=== PATIENT | female | born 1955 | race American Indian/Alaskan Native ===

== ENCOUNTER 2017-01-22 17:19 | Emergency (ER) | payer SELFPAY ==
[2017-01-22 18:59] LABS: Basophils # (Auto) 0.1 K/mm3 (0.0-0.1); Basophils % (Auto) 0.8 % (0.0-1.8); Eosinophils % (Auto) 0.3 % (0.0-4.3); Hematocrit 37.4 % (30.3-42.9); Hemoglobin 12.5 gm/dl (10.1-14.3); Lymphocytes # (Auto) 2.8 K/mm3 (1.2-5.4); Lymphocytes % (Auto) 42.4 % (13.4-35.0); Mean Corpuscular HGB Conc 33 % (30-34); Mean Corpuscular Hemoglobin 32 pg (28-32); Mean Corpuscular Volume 94 fl (79-97); Monocytes # (Auto) 0.9 K/mm3 (0.0-0.8); Monocytes % (Auto) 13.1 % (0.0-7.3); Platelet Count 229 K/mm3 (140-440); Red Blood Count 3.97 M/mm3 (3.65-5.03); Red Cell Distribution Width 14.6 % (13.2-15.2)
[2017-01-22 19:02] LABS: Bilirubin,Urine NEG (Negative); Blood,Urine NEG (Negative); Color,Urine Straw (Yellow); Nitrite,Urine NEG (Negative); Protein,Urine <15 mg/dL mg/dL (Negative); Urobilinogen,Urine < 2.0 mg/dL (<2.0)
[2017-01-22 19:12] LABS: Amphetamine Screen,Urine PRESUMPTIVE NEGATIVE; Benzodiazepines Screen,Urine PRESUMPTIVE NEGATIVE; Cannabinoid Screen,Urine PRESUMPTIVE NEGATIVE; Cocaine Screen,Urine PRESUMPTIVE NEGATIVE; Methadone Screen,Urine PRESUMPTIVE NEGATIVE; Opiate Screen,Urine PRESUMPTIVE NEGATIVE
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
[2017-01-22 19:19] LABS: Alanine Aminotransferase 20 units/L (7-56); Albumin 3.9 g/dL (3.9-5); BUN/Creatinine Ratio 16; Blood Urea Nitrogen 11 mg/dL (7-17); Calcium 9.1 mg/dL (8.4-10.2); Hemolysis Index 21
--- NOTE | 2017-01-23 12:48 | Consultation ---
History of Present Illness - Reason for Consult Consult date: 01/23/17 Reason for consult: Mental Health Evaluation Requesting physician: ZACHARY NI - Chief Complaint Chief complaint: "What" - History of Present Psychiatric Illness This is a 61 year-old female presents to the emergency department for a mental health evaluation. Today patient is calm, but disorganized during the assessment. Patient was not able to answer questions logically when asked. Patient is a poor historian at this time. Per the ER note , the patient has a community mental health social worker. Past psychiatric history - Past Medical History Past Medical History: other (Unable to obtain) Past Surgical History: Other (Unable to obtain) - past Psychiatric treatment and history psychiatric treatment history: Unable to obtain a psy hx or fam psy hx. - Social History Social history: other (homeless) Mental Status Exam - Vital signs Last Vital Signs Temp 98.7 F 01/23/17 10:05 Pulse 103 H 01/23/17 10:05 Resp 20 01/23/17 10:07 BP 128/79 01/23/17 10:05 Pulse Ox 100 01/23/17 10:07 - Exam Narrative exam: MSE: Appearance: calm Behavior: regular eye contact Speech: regular rate and tone Mood: 'I don't know" Affect: blunted Thought Process: tangential Thought Content: no gestures SI/HI's and AVH's, disorganized Motor Activity: ambulatory, mild tremors Cognition: A/O x1 Insight: limited Judgment: limited Results Result Diagrams: 01/22/17 18:39 01/22/17 18:39 Abnormal lab results 01/22/17 01/22/17 Range/Units 18:39 18:39 Lymph % (Auto) 42.4 H (13.4-35.0) % Wake % (Auto) 13.1 H (0.0-7.3) % Wake # 0.9 H (0.0-0.8) K/mm3 Alkaline Phosphatase 141 H (35-129) units/L Total Protein 8.6 H (6.3-8.2) g/dL All other labs normal. Assessment and Plan Assessment and plan: Impression: Today patient is calm, but disorganized during the assessment. Patient is a poor historian. Recommendation/Plan: Continue 1013. Patient does not have the ability to care for self. Gather collateral to determine proper dispo and treatment.
[2017-01-24] MEDS ORDERED: HALDOL PO ONE (11:20)
--- NOTE | 2017-01-24 22:41 | Progress Note ---
Subjective - Reason for Consult Reason for consult: disorganized Mental Status Exam - Vital signs Last Vital Signs Temp 98.2 F 01/24/17 09:34 Pulse 96 H 01/24/17 09:34 Resp 18 01/24/17 09:35 BP 144/68 01/24/17 09:34 Pulse Ox 99 01/24/17 09:34 Assessment and Plan Orientation to Time: day, month, but not year, date or time Orientation to Place: city, state, but not location floor, hospital name Registration: able to repeat named prompts Attention/Calculation: DLWR (when asked WORLD backwards), poor calculation, unable to do serial 7's Recall: poor Langauge: naming intact Repetition: intact Complex commands: limited MENTAL STATUS EXAM: General Appearance: Dressed in hospital gown, no acute distress Sensorium/Consciousness: Mostly alert Eye Contact: limited Attitude / Behavior: cooperative, but guarded Psychomotor & Musculoskeletal Activity: impulsive, agitated Mood: fine Affect: labile and incongruent Speech / Language: Not slurred, reduced spontaneity but fluent when speaking Thought Processes: Perseverative Thought Content: denies SI/HI Perception: no AVH Orientation: limited, as described ablve Judgment What would you do if you smelled smoke in a crowded movie theater?: limited Insight: limited Intelligence Vocabulary, general fund of knowledge, educational level: fair Capacity of ADLs: Independent ADMITTING DIAGNOSES/INITIAL IMPRESSION: Dementia r/o Delirium INITIAL PLAN OF CARE AND TREATMENT GOALS: 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 The patient has not been able to demonstrate ability to care for self and should be maintained in a structured environment. Given their lack of capacity to make a decision, a surrogate decision maker should be named to make medical, placement , and discharge decisions. Should the patient try to leave, they should not be allowed unless the surrogate decision maker has agreed. The risk, benefits, and alternative options to holding the patient for placement should be discussed with the surrogate, and he/she must also demonstrate understanding of these principles. If a surrogate decision maker has not been identified, the hospital should act in the patients best interest until one can be identified or a guardian established. At this time, we feel it is in the patients best interest to remain at [facility] in a structured environment with adequate support for daily living until placement in a shelter or other suitable placement has been arranged. The patient does not meet criteria for a 1013 or any other psychiatric legal hold.
--- NOTE | 2017-01-25 11:44 | Progress Note ---
Subjective - Reason for Consult Consult date: 01/25/17 Reason for consult: Psychiatry Follow-up - Chief Complaint Chief complaint: "Tashia" This is a 61 year-old female presents to the emergency department for a mental health evaluation. Today patient is calm during the assessment. Patient is adamant about going home. Patient was able to recall 1/3 numbers (4,8,11) within 5 mins. Patient was not able to state her and the current [place] President. Per the staff, patient ate 100% of her meals and no behavioral disturbances overnight. She denies SI/HI's. Mental Status Exam - Vital signs Last Vital Signs Temp 98.8 F 01/24/17 23:00 Pulse 69 01/24/17 23:00 Resp 18 01/24/17 23:00 BP 122/60 01/24/17 23:00 Pulse Ox 97 01/24/17 23:00 - Exam Narrative exam: MSE: Appearance: calm, cooperative Behavior: regular eye contact Speech: regular rate and tone Mood: "okay" Affect: labile Thought Process: perseverative Thought Content: denies SI/HI's and AVH's Motor Activity: ambulatory, mild tremors Cognition: A/O x2 Insight: limited Judgment: limited Assessment and Plan Impression: Dementia. Today patient calm during the assessment. Patient is a poor historian. DDx: R/O Delirium Recommendation/Plan: Rescind 1013. Gather collateral information to help determine treatment. De Icer Finisher involve, patient will need placement. Delirium Precautions below: Delirium precautions below: 1. Frequently reorient patient and involve him/her in their care (simple explanations of procedures, tests, medications). 2. Lights on and shades open during daytime hours. 3. Try to avoid unnecessary interruptions to sleep during nighttime hours. 4. Obtain glasses, hearing aids from home if patient uses these at baseline. 5. Avoid medications that may exacerbate delirium (especially narcotics, barbiturates, ambien, lunesta, benzos, and medications with excessive anticholinergic properties). 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 The patient has not been able to demonstrate ability to care for self and should be maintained in a structured environment. Given their lack of capacity to make a decision, a surrogate decision maker should be named to make medical, placement , and discharge decisions. Should the patient try to leave, they should not be allowed unless the surrogate decision maker has agreed. The risk, benefits, and alternative options to holding the patient for placement should be discussed with the surrogate, and he/she must also demonstrate understanding of these principles. If a surrogate decision maker has not been identified, the hospital should act in the patients best interest until one can be identified or a guardian established. At this time, we feel it is in the patients best interest to remain at [facility] in a structured environment with adequate support for daily living until placement in a jail or other suitable placement has been arranged. The patient does not meet criteria for a 1013 or any other psychiatric legal hold.
--- NOTE | 2017-01-26 22:02 | Progress Note ---
Subjective - Reason for Consult Reason for consult: disorganized Mental Status Exam - Vital signs Last Vital Signs Temp 98.5 F 01/26/17 10:00 Pulse 100 H 01/26/17 10:00 Resp 18 01/26/17 18:03 BP 106/57 01/26/17 10:00 Pulse Ox 97 01/26/17 18:03 Assessment and Plan Continues to struggle with executive function: planning and coordination of activities. As such, patient needs placement in a level II fci. food services director should get involve in the process to help facilitate this process. MENTAL STATUS EXAM: General Appearance: Dressed in hospital gown, no acute distress Sensorium/Consciousness: Mostly alert Eye Contact: limited Attitude / Behavior: cooperative, but guarded Psychomotor & Musculoskeletal Activity: impulsive, agitated Mood: fine Affect: labile and incongruent Speech / Language: Not slurred, reduced spontaneity but fluent when speaking Thought Processes: Perseverative Thought Content: denies SI/HI Perception: no AVH Orientation: limited, as described ablve Judgment What would you do if you smelled smoke in a crowded movie theater?: limited Insight: limited Intelligence Vocabulary, general fund of knowledge, educational level: fair Capacity of ADLs: Independent ADMITTING DIAGNOSES/INITIAL IMPRESSION: Dementia INITIAL PLAN OF CARE AND TREATMENT GOALS: 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 The patient has not been able to demonstrate ability to care for self and should be maintained in a structured environment. Given their lack of capacity to make a decision, a surrogate decision maker should be named to make medical, placement , and discharge decisions. Should the patient try to leave, they should not be allowed unless the surrogate decision maker has agreed. The risk, benefits, and alternative options to holding the patient for placement should be discussed with the surrogate, and he/she must also demonstrate understanding of these principles. If a surrogate decision maker has not been identified, the hospital should act in the patients best interest until one can be identified or a guardian established. At this time, we feel it is in the patients best interest to remain at [facility] in a structured environment with adequate support for daily living until placement in a fci or other suitable placement has been arranged. The patient does not meet criteria for a 1013 or any other psychiatric legal hold.
--- NOTE | 2017-01-27 14:44 | Progress Note ---
Subjective - Reason for Consult Consult date: 01/27/17 Reason for consult: psychiatric follow up - Chief Complaint Chief complaint: "When can I go?" This is a 61 year-old female waiting for placement by foster care social worker. Today patient is calm during the assessment. Patient is adamant about going home. She reports a fair appetite but is having trouble going to sleep. She asks for benadryl. She requires assistance for ADLs. Mental Status Exam - Vital signs Last Vital Signs Temp 98.4 F 01/27/17 07:25 Pulse 68 01/27/17 07:25 Resp 20 01/27/17 07:25 BP 119/78 01/27/17 07:25 Pulse Ox 100 01/27/17 07:25 Assessment and Plan Continues to struggle with executive function: planning and coordination of activities. As such, patient needs placement in a level II residential. financial services rep should get involve in the process to help facilitate this process. 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 The patient has not been able to demonstrate ability to care for self and should be maintained in a structured environment. Given their lack of capacity to make a decision, a surrogate decision maker should be named to make medical, placement , and discharge decisions. Should the patient try to leave, they should not be allowed unless the surrogate decision maker has agreed. The risk, benefits, and alternative options to holding the patient for placement should be discussed with the surrogate, and he/she must also demonstrate understanding of these principles. If a surrogate decision maker has not been identified, the hospital should act in the patients best interest until one can be identified or a guardian established. At this time, we feel it is in the patients best interest to remain at [facility] in a structured environment with adequate support for daily living until placement in a residential or other suitable placement has been arranged. The patient does not meet criteria for a 1013 or any other psychiatric legal hold. Remeron 7.5mg po hs added for sleep.
[2017-01-27] MEDS: REMERON PO SCH (22:21)
--- NOTE | 2017-01-28 16:30 | Progress Note ---
Subjective - Reason for Consult Consult date: 01/28/17 Reason for consult: follow up - Chief Complaint Chief complaint: "Hey" This is a 61 year-old female waiting for placement by social director. Today patient is calm during the assessment. Patient is adamant about going home. She is intrusive with staff. She reports a fair appetite and fair sleep since taking remeron last night. She requires assistance for ADLs, specifically with meal prep. Mental Status Exam - Vital signs Last Vital Signs Temp 98.5 F 01/28/17 10:39 Pulse 75 01/28/17 10:39 Resp 20 01/28/17 10:39 BP 134/66 01/28/17 10:39 Pulse Ox 100 01/27/17 19:50 Assessment and Plan Continues to struggle with executive function: planning and coordination of activities. As such, patient needs placement in a level II chcf. donor services team leader should get involve in the process to help facilitate this process. MENTAL STATUS EXAM: General Appearance: Dressed in hospital gown, no acute distress. Sensorium: alert Eye Contact: limited Attitude / Behavior: cooperative and intrusive Psychomotor & Musculoskeletal Activity: generalized tremors Mood: fine Affect: labile and incongruent Speech / Language: regular rate and rhythm Thought Processes: Perseverative Thought Content: denies SI/HI Perception: no AVH Orientation: limited to person and place Judgment: limited Insight: limited Intelligence: fair Capacity of ADLs: independent with ambulation and toileting. 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 The patient has not been able to demonstrate ability to care for self and should be maintained in a structured environment. Given their lack of capacity to make a decision, a surrogate decision maker should be named to make medical, placement , and discharge decisions. Should the patient try to leave, they should not be allowed unless the surrogate decision maker has agreed. The risk, benefits, and alternative options to holding the patient for placement should be discussed with the surrogate, and he/she must also demonstrate understanding of these principles. If a surrogate decision maker has not been identified, the hospital should act in the patients best interest until one can be identified or a guardian established. At this time, we feel it is in the patients best interest to remain at [facility] in a structured environment with adequate support for daily living until placement in a chcf or other suitable placement has been arranged. The patient does not meet criteria for a 1013 or any other psychiatric legal hold. Continue Remeron 7.5mg po hs, which was added for sleep.
[2017-01-29] MEDS: REMERON PO SCH ×2 (01:40→22:06)
--- NOTE | 2017-01-29 14:50 | Progress Note ---
Subjective - Reason for Consult Consult date: 01/29/17 Reason for consult: Psychiatry Follow-up - Chief Complaint Chief complaint: "Tashia Blackburn is a 61 year-old female waiting for placement by child protective services social worker. Today patient is calm during the assessment. She was eating her breakfast on my arrival to her room. She denies any side effects of her medication. Per the staff, no behavioral disturbance overnight. She denies SI/HI 's and AVH's. Mental Status Exam - Vital signs Last Vital Signs Temp 97.8 F 01/29/17 09:10 Pulse 60 01/29/17 09:10 Resp 20 01/29/17 09:10 BP 122/66 01/29/17 09:10 Pulse Ox 100 01/29/17 09:10 - Exam Narrative exam: MSE: Appearance: calm, cooperative Behavior: regular eye contact Speech: regular rate and tone Mood: "fine" Affect: labile Thought Process: perseverative Thought Content: denies SI/HI's and AVH's Motor Activity: ambulatory, mild tremors Cognition: A/O x2 Insight: limited Judgment: limited Assessment and Plan Impression: Dementia. Today patient calm during the assessment. She denies any sleep disturbance. Patient is not drowsy/lethargic during interview. DDx: R/O Delirium Recommendation/Plan: Continue Remeron 7.5 mg PO HS for sleep consolidation. Per Referral Clerk, patient is pending placement. 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 The patient has not been able to demonstrate ability to care for self and should be maintained in a structured environment. Given their lack of capacity to make a decision, a surrogate decision maker should be named to make medical, placement , and discharge decisions. Should the patient try to leave, they should not be allowed unless the surrogate decision maker has agreed. The risk, benefits, and alternative options to holding the patient for placement should be discussed with the surrogate, and he/she must also demonstrate understanding of these principles. If a surrogate decision maker has not been identified, the hospital should act in the patients best interest until one can be identified or a guardian established. At this time, we feel it is in the patients best interest to remain at [facility] in a structured environment with adequate support for daily living until placement in a [facility] or other suitable placement has been arranged. The patient does not meet criteria for a 1013 or any other psychiatric legal hold.
--- NOTE | 2017-01-30 10:35 | Progress Note ---
Subjective - Reason for Consult Consult date: 01/30/17 Reason for consult: Psychiatry Follow-up - Chief Complaint Chief complaint: "Good morning" This is a 61 year-old female waiting for placement by social services coordinator. Today patient is calm during the assessment. She is adamant about wanting to be discharged. She denies any side effects of her medication. Per the staff, no behavioral disturbance overnight. She denies SI/HI's and AVH's. Mental Status Exam - Vital signs Last Vital Signs Temp 97.8 F 01/29/17 09:10 Pulse 60 01/29/17 09:10 Resp 20 01/29/17 09:10 BP 122/66 01/29/17 09:10 Pulse Ox 100 01/29/17 09:10 - Exam Narrative exam: MSE: Appearance: calm, cooperative Behavior: regular eye contact Speech: regular rate and tone Mood: "okay" Affect: labile Thought Process: perseverative Thought Content: denies SI/HI's and AVH's Motor Activity: ambulatory, mild tremors Cognition: A/O x2 Insight: limited Judgment: limited Assessment and Plan Impression: Dementia. Today patient calm during the assessment. She denies any sleep disturbance. Patient is not drowsy/lethargic during interview. DDx: R/O Delirium Recommendation/Plan: Continue Remeron 7.5 mg PO HS for sleep consolidation. Per Occupancy Specialist, patient is pending placement. 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 The patient has not been able to demonstrate ability to care for self and should be maintained in a structured environment. Given their lack of capacity to make a decision, a surrogate decision maker should be named to make medical, placement , and discharge decisions. Should the patient try to leave, they should not be allowed unless the surrogate decision maker has agreed. The risk, benefits, and alternative options to holding the patient for placement should be discussed with the surrogate, and he/she must also demonstrate understanding of these principles. If a surrogate decision maker has not been identified, the hospital should act in the patients best interest until one can be identified or a guardian established. At this time, we feel it is in the patients best interest to remain at [facility] in a structured environment with adequate support for daily living until placement in a longterm or other suitable placement has been arranged. The patient does not meet criteria for a 1013 or any other psychiatric legal hold.
[2017-01-30] MEDS: REMERON PO SCH (22:03)
[2017-01-31] MEDS: REMERON PO SCH (21:37)
--- NOTE | 2017-02-01 13:00 | Progress Note ---
Subjective - Reason for Consult Consult date: 02/01/17 Reason for consult: Psychiatry Follow-up - Chief Complaint Chief complaint: "Tashia" This is a 61 year-old female waiting for placement by social services analyst. Today patient is calm during the assessment. Patient was able to tell me her , but could not ID the past and current [place] Presidents. She was only able to recall 1/3 numbers (6,10,12) within 5 mins. The patient continue to be adamant about being discharged. She denies any side effects of her medication. Per the staff, no behavioral disturbance overnight. She denies SI/HI's and AVH' s. Mental Status Exam - Vital signs Last Vital Signs Temp 98.2 F 01/31/17 20:43 Pulse 75 01/31/17 20:43 Resp 16 02/01/17 11:39 BP 120/66 01/31/17 20:43 Pulse Ox 98 02/01/17 11:39 - Exam Narrative exam: MSE: Appearance: calm, cooperative Behavior: regular eye contact Speech: regular rate and tone Mood: "well" Affect: congruent to mood Thought Process: circumstantial Thought Content: denies SI/HI's and AVH's Motor Activity: ambulatory, mild tremors Cognition: A/O x2 Insight: limited Judgment: limited Assessment and Plan Impression: Dementia. Today patient calm during the assessment. She denies any sleep disturbance. Patient is not drowsy/lethargic during interview. DDx: R/O Delirium Recommendation/Plan: Continue Remeron 7.5 mg PO HS for sleep consolidation. Per Shopping Investigator, patient is pending placement. 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 The patient has not been able to demonstrate ability to care for self and should be maintained in a structured environment. Given their lack of capacity to make a decision, a surrogate decision maker should be named to make medical, placement , and discharge decisions. Should the patient try to leave, they should not be allowed unless the surrogate decision maker has agreed. The risk, benefits, and alternative options to holding the patient for placement should be discussed with the surrogate, and he/she must also demonstrate understanding of these principles. If a surrogate decision maker has not been identified, the hospital should act in the patients best interest until one can be identified or a guardian established. At this time, we feel it is in the patients best interest to remain at [facility] in a structured environment with adequate support for daily living until placement in a penitentiary or other suitable placement has been arranged. The patient does not meet criteria for a 1013 or any other psychiatric legal hold.
[2017-02-01] MEDS: REMERON PO SCH (22:23)
--- NOTE | 2017-02-02 13:45 | Progress Note ---
Subjective - Reason for Consult Consult date: 02/02/17 Reason for consult: Psychiatry Follow-up - Chief Complaint Chief complaint: "How are you" This is a 61 year-old female waiting for placement by social media intern. Today patient is calm during the assessment. No changes to patient status since yesterday. Per the staff, no behavioral disturbances overnight. She denies SI/HI's and AVH's. Mental Status Exam - Vital signs Last Vital Signs Temp 98.6 F 02/01/17 22:00 Pulse 70 02/01/17 22:00 Resp 18 02/01/17 22:00 BP 112/71 02/01/17 22:00 Pulse Ox 98 02/01/17 22:00 - Exam Narrative exam: MSE: Appearance: calm, cooperative Behavior: regular eye contact Speech: regular rate and tone Mood: "okay" Affect: congruent to mood Thought Process: circumstantial Thought Content: denies SI/HI's and AVH's Motor Activity: ambulatory, mild tremors Cognition: A/O x2 Insight: variable Judgment: variable Assessment and Plan Impression: Dementia. Today patient calm during the assessment. DDx: R/O Delirium Recommendation/Plan: Continue Remeron 7.5 mg PO HS for sleep consolidation. Per Instant Potato Processor, patient is pending placement. 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 The patient has not been able to demonstrate ability to care for self and should be maintained in a structured environment. Given their lack of capacity to make a decision, a surrogate decision maker should be named to make medical, placement , and discharge decisions. Should the patient try to leave, they should not be allowed unless the surrogate decision maker has agreed. The risk, benefits, and alternative options to holding the patient for placement should be discussed with the surrogate, and he/she must also demonstrate understanding of these principles. If a surrogate decision maker has not been identified, the hospital should act in the patients best interest until one can be identified or a guardian established. At this time, we feel it is in the patients best interest to remain at [facility] in a structured environment with adequate support for daily living until placement in a care home or other suitable placement has been arranged. The patient does not meet criteria for a 1013 or any other psychiatric legal hold.
[2017-02-02] MEDS ORDERED: ALUM-MAG HYDROX-SIMETH 200-200-20MG/5ML PO ONE (15:58)
[2017-02-02] MEDS: REMERON PO SCH (22:22)
[2017-02-03] MEDS: REMERON PO SCH (22:00)
[2017-02-04] MEDS: REMERON PO SCH (22:26)
--- NOTE | 2017-02-05 11:00 | Progress Note ---
Subjective - Reason for Consult Consult date: 02/05/17 Reason for consult: Psychiatry Follow-up - Chief Complaint Chief complaint: "Good morning" This is a 61 year-old female waiting for placement by director of social work. Today patient is calm during the assessment. Per the staff, no behavioral disturbances overnight. She denies SI/HI's and AVH's. Mental Status Exam - Vital signs Last Vital Signs Temp 98.6 F 02/05/17 09:57 Pulse 71 02/05/17 09:57 Resp 20 02/05/17 10:00 BP 104/74 02/05/17 09:57 Pulse Ox 100 02/05/17 10:00 - Exam Narrative exam: MSE: Appearance: calm, cooperative Behavior: regular eye contact Speech: regular rate and tone Mood: "okay" Affect: congruent to mood Thought Process: circumstantial Thought Content: denies SI/HI's and AVH's Motor Activity: ambulatory, mild tremors Cognition: A/O x2 Insight: variable Judgment: variable Assessment and Plan Impression: Dementia. Today patient calm during the assessment. DDx: R/O Delirium Recommendation/Plan: Continue Remeron 7.5 mg PO HS for sleep consolidation. Per Monument Setter Helper, patient is pending placement. 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 The patient has not been able to demonstrate ability to care for self and should be maintained in a structured environment. Given their lack of capacity to make a decision, a surrogate decision maker should be named to make medical, placement , and discharge decisions. Should the patient try to leave, they should not be allowed unless the surrogate decision maker has agreed. The risk, benefits, and alternative options to holding the patient for placement should be discussed with the surrogate, and he/she must also demonstrate understanding of these principles. If a surrogate decision maker has not been identified, the hospital should act in the patients best interest until one can be identified or a guardian established. At this time, we feel it is in the patients best interest to remain at [facility] in a structured environment with adequate support for daily living until placement in a care home or other suitable placement has been arranged. The patient does not meet criteria for a 1013 or any other psychiatric legal hold.
[2017-02-05] MEDS: REMERON PO SCH (22:04)
--- NOTE | 2017-02-06 10:16 | Progress Note ---
Subjective - Reason for Consult Consult date: 02/06/17 Reason for consult: Psychiatry Follow-up - Chief Complaint Chief complaint: "When will I leave" This is a 61 year-old female waiting for placement by social media developer. Today patient is calm during the assessment. Per the staff, no behavioral disturbances overnight. Patient denies any side effects of her medication. She denies SI/HI's and AVH's. Mental Status Exam - Vital signs Last Vital Signs Temp 98.3 F 02/06/17 07:35 Pulse 75 02/06/17 07:35 Resp 18 02/06/17 07:35 BP 108/61 02/06/17 07:35 Pulse Ox 97 02/06/17 07:35 - Exam Narrative exam: MSE: Appearance: calm, cooperative Behavior: regular eye contact Speech: regular rate and tone Mood: "okay" Affect: congruent to mood Thought Process: circumstantial Thought Content: denies SI/HI's and AVH's Motor Activity: ambulatory, mild tremors Cognition: A/O x2 Insight: variable Judgment: variable Assessment and Plan Impression: Dementia. Today patient calm and cooperative during the assessment. DDx: R/O Delirium Recommendation/Plan: Continue Remeron 7.5 mg PO HS for sleep consolidation. Per Rapid Outsole Stitcher, patient is pending placement. 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 The patient has not been able to demonstrate ability to care for self and should be maintained in a structured environment. Given their lack of capacity to make a decision, a surrogate decision maker should be named to make medical, placement , and discharge decisions. Should the patient try to leave, they should not be allowed unless the surrogate decision maker has agreed. The risk, benefits, and alternative options to holding the patient for placement should be discussed with the surrogate, and he/she must also demonstrate understanding of these principles. If a surrogate decision maker has not been identified, the hospital should act in the patients best interest until one can be identified or a guardian established. At this time, we feel it is in the patients best interest to remain at [facility] in a structured environment with adequate support for daily living until placement in a [place] [facility] [place] facility or other suitable placement has been arranged. The patient does not meet criteria for a 1013 or any other psychiatric legal hold.
[2017-02-06] MEDS: REMERON PO SCH (21:38)
[2017-02-07] MEDS: ALUM-MAG HYDROX-SIMETH 200-200-20MG/5ML PO PRN (09:41)
--- NOTE | 2017-02-07 21:31 | Progress Note ---
Subjective - Reason for Consult Reason for consult: dementia Mental Status Exam - Vital signs Last Vital Signs Temp 98.5 F 02/07/17 08:24 Pulse 82 02/07/17 08:24 Resp 18 02/07/17 10:24 BP 115/72 02/07/17 08:24 Pulse Ox 100 02/07/17 10:24 Assessment and Plan Continues to struggle with executive function: planning and coordination of activities. As such, patient needs placement in a level II skilled nursing. library services assistant should get involve in the process to help facilitate this process. MENTAL STATUS EXAM: General Appearance: Dressed in hospital gown, no acute distress Sensorium/Consciousness: Mostly alert Eye Contact: limited Attitude / Behavior: cooperative, but guarded Psychomotor & Musculoskeletal Activity: PMR with mild resting tremor Mood: fine Affect: labile and incongruent Speech / Language: Not slurred, reduced spontaneity but fluent when speaking Thought Processes: Perseverative Thought Content: denies SI/HI Perception: no AVH Orientation: limited, as described ablve Judgment What would you do if you smelled smoke in a crowded movie theater?: limited Insight: limited Intelligence Vocabulary, general fund of knowledge, educational level: fair Capacity of ADLs: Independent ADMITTING DIAGNOSES/INITIAL IMPRESSION: Dementia - Placement pending INITIAL PLAN OF CARE AND TREATMENT GOALS: 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 The patient has not been able to demonstrate ability to care for self and should be maintained in a structured environment. Given their lack of capacity to make a decision, a surrogate decision maker should be named to make medical, placement , and discharge decisions. Should the patient try to leave, they should not be allowed unless the surrogate decision maker has agreed. The risk, benefits, and alternative options to holding the patient for placement should be discussed with the surrogate, and he/she must also demonstrate understanding of these principles. If a surrogate decision maker has not been identified, the hospital should act in the patients best interest until one can be identified or a guardian established. At this time, we feel it is in the patients best interest to remain at [facility] in a structured environment with adequate support for daily living until placement in a skilled nursing or other suitable placement has been arranged. The patient does not meet criteria for a 1013 or any other psychiatric legal hold.
[2017-02-07] MEDS: REMERON PO SCH (22:05)
--- NOTE | 2017-02-08 09:41 | Progress Note ---
Subjective - Reason for Consult Consult date: 02/08/17 Reason for consult: Psychiatry Follow-up - Chief Complaint Chief complaint: "Tashia" This is a 61 year-old female waiting for placement by social worker palliative care. Today patient is calm during the assessment. Per Bander, they are diligently trying to place patient. Per the staff, no behavioral disturbances overnight. Patient denies any side effects of her medication. She denies SI/HI's and AVH's. Mental Status Exam - Vital signs Last Vital Signs Temp 97.9 F 02/07/17 22:00 Pulse 83 02/07/17 22:00 Resp 18 02/07/17 22:00 BP 117/58 02/07/17 22:00 Pulse Ox 98 02/07/17 22:00 - Exam Narrative exam: MSE: Appearance: calm, cooperative Behavior: regular eye contact Speech: regular rate and tone Mood: "well" Affect: congruent to mood Thought Process: circumstantial Thought Content: denies SI/HI's and AVH's Motor Activity: ambulatory, mild tremors Cognition: A/O x2 Insight: variable Judgment: variable Assessment and Plan Impression: Dementia. Today patient calm and cooperative during the assessment. Recommendation/Plan: Continue Remeron 7.5 mg PO HS for sleep consolidation. Per Bander, patient is pending placement. 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 The patient has not been able to demonstrate ability to care for self and should be maintained in a structured environment. Given their lack of capacity to make a decision, a surrogate decision maker should be named to make medical, placement , and discharge decisions. Should the patient try to leave, they should not be allowed unless the surrogate decision maker has agreed. The risk, benefits, and alternative options to holding the patient for placement should be discussed with the surrogate, and he/she must also demonstrate understanding of these principles. If a surrogate decision maker has not been identified, the hospital should act in the patients best interest until one can be identified or a guardian established. At this time, we feel it is in the patients best interest to remain at [facility] in a structured environment with adequate support for daily living until placement in a [facility] or other suitable placement has been arranged. The patient does not meet criteria for a 1013 or any other psychiatric legal hold.
[2017-02-08] MEDS: ALUM-MAG HYDROX-SIMETH 200-200-20MG/5ML PO PRN (15:05)
[2017-02-08] MEDS: REMERON PO SCH (22:05)
--- NOTE | 2017-02-09 13:40 | Progress Note ---
Subjective - Reason for Consult Consult date: 02/09/17 Reason for consult: Psychiatry Follow-up - Chief Complaint Chief complaint: "How are you" This is a 61 year-old female waiting for placement by delinquency prevention social worker. Today patient is calm during the assessment. She denies SI/HI's and AVH's. Mental Status Exam - Vital signs Last Vital Signs Temp 98.1 F 02/08/17 14:22 Pulse 109 H 02/08/17 14:22 Resp 20 02/08/17 14:22 BP 127/72 02/08/17 14:22 Pulse Ox 96 02/09/17 12:45 - Exam Narrative exam: MSE: Appearance: calm, cooperative Behavior: regular eye contact Speech: regular rate and tone Mood: "good" Affect: congruent to mood Thought Process: circumstantial Thought Content: denies SI/HI's and AVH's Motor Activity: ambulatory, mild tremors Cognition: A/O x2 Insight: variable Judgment: variable Assessment and Plan Impression: Dementia. Today patient calm and cooperative during the assessment. Recommendation/Plan: Continue Remeron 7.5 mg PO HS for sleep consolidation. Per Pheresis Specialist, patient is pending placement. 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 The patient has not been able to demonstrate ability to care for self and should be maintained in a structured environment. Given their lack of capacity to make a decision, a surrogate decision maker should be named to make medical, placement , and discharge decisions. Should the patient try to leave, they should not be allowed unless the surrogate decision maker has agreed. The risk, benefits, and alternative options to holding the patient for placement should be discussed with the surrogate, and he/she must also demonstrate understanding of these principles. If a surrogate decision maker has not been identified, the hospital should act in the patients best interest until one can be identified or a guardian established. At this time, we feel it is in the patients best interest to remain at [facility] in a structured environment with adequate support for daily living until placement in a senior living or other suitable placement has been arranged. The patient does not meet criteria for a 1013 or any other psychiatric legal hold.
[2017-02-09] MEDS: REMERON PO SCH (22:15)
--- NOTE | 2017-02-10 10:49 | Progress Note ---
Subjective - Reason for Consult Consult date: 02/10/17 Reason for consult: Psychiatry Follow-up - Chief Complaint Chief complaint: "When can I go home" This is a 61 year-old female waiting for placement by licensed social worker. Today patient is calm and cooperative during the assessment. She was observed completing her ADL's. She denies SI/HI's and AVH's. Mental Status Exam - Vital signs Last Vital Signs Temp 98 F 02/10/17 10:27 Pulse 88 02/10/17 10:27 Resp 18 02/10/17 10:27 BP 118/75 02/10/17 10:27 Pulse Ox 98 02/10/17 10:27 - Exam Narrative exam: MSE: Appearance: calm, cooperative Behavior: regular eye contact Speech: regular rate and tone Mood: "okay" Affect: congruent to mood Thought Process: circumstantial Thought Content: denies SI/HI's and AVH's Motor Activity: ambulatory, mild tremors Cognition: A/O x2 Insight: variable Judgment: variable Assessment and Plan Impression: Dementia. Today patient calm and cooperative during the assessment. Recommendation/Plan: Continue Remeron 7.5 mg PO HS for sleep consolidation. Per House Player, patient is pending placement. 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 The patient has not been able to demonstrate ability to care for self and should be maintained in a structured environment. Given their lack of capacity to make a decision, a surrogate decision maker should be named to make medical, placement , and discharge decisions. Should the patient try to leave, they should not be allowed unless the surrogate decision maker has agreed. The risk, benefits, and alternative options to holding the patient for placement should be discussed with the surrogate, and he/she must also demonstrate understanding of these principles. If a surrogate decision maker has not been identified, the hospital should act in the patients best interest until one can be identified or a guardian established. At this time, we feel it is in the patients best interest to remain at [facility] in a structured environment with adequate support for daily living until placement in a [facility] or other suitable placement has been arranged. The patient does not meet criteria for a 1013 or any other psychiatric legal hold.
[2017-02-10] MEDS: REMERON PO SCH (22:20)
--- NOTE | 2017-02-11 09:59 | Progress Note ---
Subjective - Reason for Consult Consult date: 02/11/17 Reason for consult: Psychiatry Follow-up - Chief Complaint Chief complaint: "Good morning" This is a 61 year-old female waiting for placement by social worker clinical. Today patient is calm and cooperative during the assessment. No changes fro previous assessment. She denies SI/HI's and AVH's. Mental Status Exam - Vital signs Last Vital Signs Temp 97.6 F 02/11/17 08:41 Pulse 78 02/11/17 08:41 Resp 18 02/11/17 08:42 BP 128/72 02/11/17 08:41 Pulse Ox 98 02/10/17 12:22 - Exam Narrative exam: MSE: Appearance: calm, cooperative Behavior: regular eye contact Speech: regular rate and tone Mood: "okay" Affect: congruent to mood Thought Process: circumstantial Thought Content: denies SI/HI's and AVH's Motor Activity: ambulatory, mild tremors Cognition: A/O x2 Insight: variable Judgment: variable Assessment and Plan Impression: Dementia. Today patient calm and cooperative during the assessment. Recommendation/Plan: Continue Remeron 7.5 mg PO HS for sleep consolidation. Per Clinical Staff Rn, patient is pending placement. 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 The patient has not been able to demonstrate ability to care for self and should be maintained in a structured environment. Given their lack of capacity to make a decision, a surrogate decision maker should be named to make medical, placement , and discharge decisions. Should the patient try to leave, they should not be allowed unless the surrogate decision maker has agreed. The risk, benefits, and alternative options to holding the patient for placement should be discussed with the surrogate, and he/she must also demonstrate understanding of these principles. If a surrogate decision maker has not been identified, the hospital should act in the patients best interest until one can be identified or a guardian established. At this time, we feel it is in the patients best interest to remain at [facility] in a structured environment with adequate support for daily living until placement in a fpc or other suitable placement has been arranged. The patient does not meet criteria for a 1013 or any other psychiatric legal hold.
[2017-02-11] MEDS: MILK OF MAGNESIA PO PRN (17:19)
[2017-02-11] MEDS: REMERON PO SCH (22:00)
[2017-02-12] MEDS: MILK OF MAGNESIA PO PRN (06:43)
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
[2017-02-12] MEDS ORDERED: REMERON ONE (22:08)
[2017-02-12] MEDS: REMERON PO SCH (22:13)
--- NOTE | 2017-02-13 13:44 | Progress Note ---
Subjective - Reason for Consult Consult date: 02/13/17 Reason for consult: Psychiatry Follow-up - Chief Complaint Chief complaint: "Tashia" This is a 61 year-old female waiting for placement by long term care social worker. Today patient is calm and cooperative during the assessment. She is adamant about being placed. She denies any side effects of her medication. She denies SI/HI's and AVH's. Mental Status Exam - Vital signs Last Vital Signs Temp 98.3 F 02/13/17 08:38 Pulse 74 02/13/17 08:38 Resp 18 02/13/17 08:38 BP 117/64 02/13/17 08:38 Pulse Ox 98 02/13/17 08:38 - Exam Narrative exam: MSE: Appearance: calm, cooperative Behavior: regular eye contact Speech: regular rate and tone Mood: "okay" Affect: congruent to mood Thought Process: circumstantial Thought Content: denies SI/HI's and AVH's Motor Activity: ambulatory, mild tremors Cognition: A/O x2 Insight: fair Judgment: fair Assessment and Plan Impression: Dementia. Today patient calm and cooperative during the assessment. Recommendation/Plan: Continue Remeron 7.5 mg PO HS for sleep consolidation. Per Mail Carriers Supervisor, patient is pending placement. 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 The patient has not been able to demonstrate ability to care for self and should be maintained in a structured environment. Given their lack of capacity to make a decision, a surrogate decision maker should be named to make medical, placement , and discharge decisions. Should the patient try to leave, they should not be allowed unless the surrogate decision maker has agreed. The risk, benefits, and alternative options to holding the patient for placement should be discussed with the surrogate, and he/she must also demonstrate understanding of these principles. If a surrogate decision maker has not been identified, the hospital should act in the patients best interest until one can be identified or a guardian established. At this time, we feel it is in the patients best interest to remain at [facility] in a structured environment with adequate support for daily living until placement in a [place] health [place] facility or other suitable placement has been arranged. The patient does not meet criteria for a 1013 or any other psychiatric legal hold.
[2017-02-13] MEDS: REMERON PO SCH (21:33)
[2017-02-14] MEDS: ALUM-MAG HYDROX-SIMETH 200-200-20MG/5ML PO PRN (09:43)
[2017-02-15] MEDS: REMERON PO SCH ×2 (01:51→22:19)
--- NOTE | 2017-02-15 13:52 | Progress Note ---
Subjective - Reason for Consult Consult date: 02/15/17 Reason for consult: Psychiatry Follow-up - Chief Complaint Chief complaint: "When will I be leaving" This is a 61 year-old female waiting for placement by social welfare research worker. Today patient is calm and cooperative during the assessment. No changes from previous assessment. She denies SI/HI's and AVH's. Mental Status Exam - Vital signs Last Vital Signs Temp 97.7 F 02/15/17 13:03 Pulse 93 H 02/15/17 13:03 Resp 18 02/15/17 13:03 BP 133/70 02/15/17 13:03 Pulse Ox 99 02/15/17 13:03 - Exam Narrative exam: MSE: Appearance: calm, cooperative Behavior: regular eye contact Speech: regular rate and tone Mood: "okay" Affect: congruent to mood Thought Process: circumstantial Thought Content: denies SI/HI's and AVH's Motor Activity: ambulatory, mild tremors Cognition: A/O x3 Insight: variable Judgment: variable Assessment and Plan Impression: Dementia. Today patient calm and cooperative during the assessment. Recommendation/Plan: Continue Remeron 7.5 mg PO HS for sleep consolidation. Per Passenger Brakeman, patient is pending placement to an appropriate facility.
--- NOTE | 2017-02-15 18:28 | Progress Note ---
Subjective - Reason for Consult Consult date: 02/14/17 Reason for consult: dementia Mental Status Exam - Vital signs Last Vital Signs Temp 97.7 F 02/15/17 13:03 Pulse 93 H 02/15/17 13:03 Resp 18 02/15/17 17:05 BP 133/70 02/15/17 13:03 Pulse Ox 99 02/15/17 17:05 Assessment and Plan No change in presentation. MENTAL STATUS EXAM: General Appearance: Dressed in hospital gown, no acute distress Sensorium/Consciousness: Mostly alert Eye Contact: limited Attitude / Behavior: cooperative, frontal lobe release symptoms consistent with dementia Psychomotor & Musculoskeletal Activity: PMR with mild resting tremor Mood: fine Affect: labile and incongruent Speech / Language: Not slurred, reduced spontaneity but fluent when speaking Thought Processes: Perseverative Thought Content: denies SI/HI Perception: no AVH Orientation: limited, as described above Judgment What would you do if you smelled smoke in a crowded movie theater?: limited Insight: limited Intelligence Vocabulary, general fund of knowledge, educational level: fair Capacity of ADLs: Independent ADMITTING DIAGNOSES/INITIAL IMPRESSION: Dementia - Placement pending INITIAL PLAN OF CARE AND TREATMENT GOALS: 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 The patient has not been able to demonstrate ability to care for self and should be maintained in a structured environment. Given their lack of capacity to make a decision, a surrogate decision maker should be named to make medical, placement , and discharge decisions. Should the patient try to leave, they should not be allowed unless the surrogate decision maker has agreed. The risk, benefits, and alternative options to holding the patient for placement should be discussed with the surrogate, and he/she must also demonstrate understanding of these principles. If a surrogate decision maker has not been identified, the hospital should act in the patients best interest until one can be identified or a guardian established. At this time, we feel it is in the patients best interest to remain at [facility] in a structured environment with adequate support for daily living until placement in a [place] health [place] facility or other suitable placement has been arranged. The patient does not meet criteria for a 1013 or any other psychiatric legal hold.
--- NOTE | 2017-02-16 10:38 | Progress Note ---
Subjective - Reason for Consult Consult date: 02/16/17 Reason for consult: Psychiatry Follow- - Chief Complaint Chief complaint: "Hi" This is a 61 year-old female waiting for placement by vp digital marketing social media and crm. Today patient is calm and cooperative during the assessment. No changes from previous assessment. Per the staff, no behavioral disturbance overnight. She denies SI/HI's and AVH's. Mental Status Exam - Vital signs Last Vital Signs Temp 97.7 F 02/15/17 13:03 Pulse 93 H 02/15/17 13:03 Resp 18 02/15/17 17:05 BP 133/70 02/15/17 13:03 Pulse Ox 99 02/15/17 17:05 - Exam Narrative exam: MSE: Appearance: calm, cooperative Behavior: regular eye contact Speech: regular rate and tone Mood: "okay" Affect: congruent to mood Thought Process: circumstantial Thought Content: denies SI/HI's and AVH's Motor Activity: ambulatory, mild tremors Cognition: A/O x3 Insight: variable Judgment: variable Assessment and Plan Impression: Dementia. Today patient calm and cooperative during the assessment. Recommendation/Plan: Continue Remeron 7.5 mg PO HS for sleep consolidation. Per Air Hose Coupler, patient is pending placement to an appropriate facility.
[2017-02-16] MEDS: ALUM-MAG HYDROX-SIMETH 200-200-20MG/5ML PO PRN (15:05)
[2017-02-16] MEDS: REMERON PO SCH (22:12)
[2017-02-17] MEDS: REMERON PO SCH (23:13)
--- NOTE | 2017-02-18 10:35 | Progress Note ---
Subjective - Reason for Consult Consult date: 02/18/17 Reason for consult: Psychiatry Follow-up - Chief Complaint Chief complaint: "Tashia" This is a 61 year-old female waiting for placement by addiction social worker. Today patient is calm and cooperative during the assessment. No changes from previous assessment. She denies SI/HI's and AVH's. Mental Status Exam - Vital signs Last Vital Signs Temp 97.9 F 02/17/17 22:41 Pulse 61 02/17/17 22:41 Resp 18 02/17/17 22:41 BP 123/64 02/17/17 22:41 Pulse Ox 95 02/17/17 22:41 - Exam Narrative exam: MSE: Appearance: calm, cooperative Behavior: regular eye contact Speech: regular rate and tone Mood: "okay" Affect: congruent to mood Thought Process: circumstantial Thought Content: denies SI/HI's and AVH's Motor Activity: ambulatory, mild tremors Cognition: A/O x3 Insight: variable Judgment: variable Assessment and Plan Impression: Dementia. Today patient calm and cooperative during the assessment. Recommendation/Plan: Continue Remeron 7.5 mg PO HS for sleep consolidation. Per Cd Technician, patient is pending placement to an appropriate facility.
[2017-02-18] MEDS: REMERON PO SCH (23:26)
[2017-02-18] MEDS: TYLENOL PO PRN (23:26)
--- NOTE | 2017-02-19 12:15 | Progress Note ---
Subjective - Reason for Consult Consult date: 02/19/17 Reason for consult: Psychiatry Follow-up - Chief Complaint Chief complaint: "Tashia" This is a 61 year-old female waiting for placement by social work specialist. Today patient is calm and cooperative during the assessment. She denies SI/HI's and AVH's. Mental Status Exam - Vital signs Last Vital Signs Temp 98.4 F 02/18/17 20:45 Pulse 70 02/18/17 20:45 Resp 18 02/18/17 20:45 BP 120/53 02/18/17 20:45 Pulse Ox 99 02/18/17 20:45 - Exam Narrative exam: MSE: Appearance: calm, cooperative Behavior: regular eye contact Speech: regular rate and tone Mood: "okay" Affect: congruent to mood Thought Process: circumstantial Thought Content: denies SI/HI's and AVH's Motor Activity: ambulatory, mild tremors Cognition: A/O x3 Insight: variable Judgment: variable Assessment and Plan Impression: Dementia. Today patient calm and cooperative during the assessment. Recommendation/Plan: Continue Remeron 7.5 mg PO HS for sleep consolidation. Per Technical Photographer, patient is pending placement to an appropriate facility.
[2017-02-20] MEDS: REMERON PO SCH ×2 (00:25→22:12)
[2017-02-20] MEDS: ALUM-MAG HYDROX-SIMETH 200-200-20MG/5ML PO PRN (00:48)
--- NOTE | 2017-02-20 11:41 | Progress Note ---
Subjective - Reason for Consult Consult date: 02/20/17 Reason for consult: Psychiatry Follow-up - Chief Complaint Chief complaint: "Good morning" This is a 61 year-old female waiting for placement by director social welfare. Today patient is calm and cooperative during the assessment. She denies SI/HI's and AVH's. Mental Status Exam - Vital signs Last Vital Signs Temp 97.8 F 02/20/17 09:08 Pulse 74 02/20/17 09:08 Resp 20 02/20/17 09:08 BP 124/70 02/20/17 09:08 Pulse Ox 100 02/20/17 09:08 - Exam Narrative exam: MSE: Appearance: calm, cooperative Behavior: regular eye contact Speech: regular rate and tone Mood: "okay" Affect: congruent to mood Thought Process: circumstantial Thought Content: denies SI/HI's and AVH's Motor Activity: ambulatory, mild tremors Cognition: A/O x3 Insight: variable Judgment: variable Assessment and Plan Impression: Dementia. Today patient calm and cooperative during the assessment. Recommendation/Plan: Continue Remeron 7.5 mg PO HS for sleep consolidation. Per Painter And Grader Cork, patient is pending placement to an appropriate facility.
[2017-02-21] MEDS: REMERON PO SCH (22:18)
--- NOTE | 2017-02-22 10:32 | Progress Note ---
Subjective - Reason for Consult Consult date: 02/22/17 Reason for consult: Psychiatry Follow-up - Chief Complaint Chief complaint: "Good morning" This is a 61 year-old female waiting for placement by social sciences chair. Today patient is calm and cooperative during the assessment. Patient is eager to be placed (at a residence). She denies SI/HI's and AVH's. Mental Status Exam - Vital signs Last Vital Signs Temp 98.0 F 02/22/17 08:15 Pulse 78 02/22/17 08:15 Resp 20 02/22/17 09:31 BP 105/74 02/22/17 08:15 Pulse Ox 99 02/22/17 09:31 - Exam Narrative exam: MSE: Appearance: calm, cooperative Behavior: regular eye contact Speech: regular rate and tone Mood: "okay" Affect: congruent to mood Thought Process: circumstantial Thought Content: denies SI/HI's and AVH's Motor Activity: ambulatory, mild tremors Cognition: A/O x3 Insight: variable Judgment: variable Assessment and Plan Impression: Dementia. Today patient calm and cooperative during the assessment. Recommendation/Plan: Continue Remeron 7.5 mg PO HS for sleep consolidation. Per Car Barn Laborer, patient is pending placement to an appropriate facility.
[2017-02-22] MEDS: REMERON PO SCH (22:23)
[2017-02-22] MEDS: TYLENOL PO PRN (22:36)
--- NOTE | 2017-02-23 09:49 | Progress Note ---
Subjective - Reason for Consult Consult date: 02/23/17 Reason for consult: Psychiatry Follow-up - Chief Complaint Chief complaint: "Tashia" This is a 61 year-old female waiting for placement by outreach and education social worker. Today patient is calm and cooperative during the assessment. No changes from previous assessment. She denies SI/HI's and AVH's. Mental Status Exam - Vital signs Last Vital Signs Temp 98.9 F 02/22/17 20:28 Pulse 98 H 02/22/17 20:28 Resp 16 02/22/17 20:28 BP 123/60 02/22/17 20:28 Pulse Ox 97 02/22/17 20:28 - Exam Narrative exam: MSE: Appearance: calm, cooperative Behavior: regular eye contact Speech: regular rate and tone Mood: "okay" Affect: congruent to mood Thought Process: circumstantial Thought Content: denies SI/HI's and AVH's Motor Activity: ambulatory, mild tremors Cognition: A/O x3 Insight: variable Judgment: variable Assessment and Plan Impression: Dementia. Today patient calm and cooperative during the assessment. Recommendation/Plan: Continue Remeron 7.5 mg PO HS for sleep consolidation. Per Mill Control Operator, patient is pending placement to an appropriate facility.
[2017-02-23] MEDS ORDERED: TYLENOL ONE (21:43)
--- NOTE | 2017-02-24 16:26 | Progress Note ---
Subjective - Reason for Consult Consult date: 02/24/17 Reason for consult: psychiatric follow up - Chief Complaint Chief complaint: "I need my bowels to move." This is a 61 year-old female waiting for placement by social group worker. Today patient is calm and cooperative during the assessment. No changes from previous assessment. She denies SI/HI's and AVH's. Nursing has addressed her complaint of constipation. Mental Status Exam - Vital signs Last Vital Signs Temp 98.8 F 02/24/17 07:43 Pulse 75 02/24/17 07:43 Resp 16 02/24/17 07:43 BP 110/56 02/24/17 07:43 Pulse Ox 100 02/24/17 07:43 - Exam Narrative exam: - Exam Narrative exam: MSE: Appearance: calm, cooperative Behavior: regular eye contact Speech: regular rate and tone Mood: "okay" Affect: congruent to mood Thought Process: circumstantial Thought Content: denies SI/HI's and AVH's Motor Activity: ambulatory, mild tremors Cognition: A/O x3 Insight: variable Judgment: variable Assessment and Plan Impression: Dementia. Today patient calm and cooperative during the assessment. Recommendation/Plan: Continue Remeron 7.5 mg PO HS for sleep consolidation. Per Trauma Therapist, patient is pending placement to an appropriate facility.
[2017-02-24] MEDS: PROTONIX PO SCH (19:05)
[2017-02-25] MEDS: PROTONIX PO SCH (11:41)
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
[2017-02-26] MEDS: PROTONIX PO SCH (10:22)
--- NOTE | 2017-02-26 11:16 | Progress Note ---
Subjective - Reason for Consult Consult date: 02/26/17 Reason for consult: Psychiatry Follow-up - Chief Complaint Chief complaint: "Can we talk" This is a 61 year-old female waiting for placement by social work associate. Today patient is calm and cooperative during the assessment. She wanted to inform me that she is "so ready to be discharged." She denies initiating sleep. She denies SI/HI's and AVH's. Mental Status Exam - Vital signs Last Vital Signs Temp 98.6 F 02/26/17 09:29 Pulse 70 02/26/17 09:29 Resp 20 02/26/17 09:29 BP 126/84 02/26/17 09:29 Pulse Ox 98 02/25/17 22:00 - Exam Narrative exam: MSE: Appearance: calm, cooperative Behavior: regular eye contact Speech: regular rate and tone Mood: "well" Affect: congruent to mood Thought Process: circumstantial Thought Content: denies SI/HI's and AVH's Motor Activity: ambulatory, mild tremors Cognition: A/O x3 Insight: variable Judgment: variable Assessment and Plan Impression: Dementia. Today patient calm and cooperative during the assessment. Recommendation/Plan: Per Solar Design Engineer, patient is pending placement to an appropriate facility.
[2017-02-27] MEDS: PROTONIX PO SCH (10:35)
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
[2017-02-28] MEDS: PROTONIX PO SCH (10:02)
--- NOTE | 2017-02-28 15:11 | Progress Note ---
Subjective - Reason for Consult Reason for consult: dementia Mental Status Exam - Vital signs Last Vital Signs Temp 97.7 F 02/28/17 08:58 Pulse 90 02/28/17 08:58 Resp 14 02/28/17 08:58 BP 129/66 02/28/17 08:58 Pulse Ox 97 02/28/17 08:58 Assessment and Plan No change in presentation. MENTAL STATUS EXAM: General Appearance: Dressed in hospital gown, no acute distress Sensorium/Consciousness: Mostly alert Eye Contact: fair Attitude / Behavior: cooperative Psychomotor & Musculoskeletal Activity: PMR with mild resting tremor Mood: fine Affect: labile and incongruent Speech / Language: Not slurred, spontaneous Thought Processes: more organized Thought Content: denies SI/HI Perception: no AVH Orientation: limited, as described above Judgment What would you do if you smelled smoke in a crowded movie theater?: limited Insight: limited Intelligence Vocabulary, general fund of knowledge, educational level: fair Capacity of ADLs: Independent ADMITTING DIAGNOSES/INITIAL IMPRESSION: Dementia - Placement pending per adoption social worker
--- NOTE | 2017-03-01 10:18 | Progress Note ---
Subjective - Reason for Consult Consult date: 03/01/17 Reason for consult: Psychiatry Follow-up - Chief Complaint Chief complaint: "Tashia" This is a 61 year-old female waiting for placement by vp digital marketing social media and crm. Today patient is calm and cooperative during the assessment. No change from previous assessment. She denies SI/HI's and AVH's. Mental Status Exam - Vital signs Last Vital Signs Temp 98 F 02/28/17 20:00 Pulse 88 03/01/17 01:15 Resp 18 02/28/17 20:00 BP 132/79 03/01/17 01:15 Pulse Ox 99 02/28/17 20:00 - Exam Narrative exam: MSE: Appearance: calm, cooperative Behavior: regular eye contact Speech: regular rate and tone Mood: "okay" Affect: congruent to mood Thought Process: circumstantial Thought Content: denies SI/HI's and AVH's Motor Activity: ambulatory, mild tremors Cognition: A/O x3 Insight: variable Judgment: variable Assessment and Plan Impression: Dementia. Today patient calm and cooperative during the assessment. Recommendation/Plan: Per [employer], patient is pending placement to an appropriate facility.
[2017-03-01] MEDS: PROTONIX PO SCH (16:58)
[2017-03-02] MEDS: PROTONIX PO SCH (10:15)
--- NOTE | 2017-03-02 11:37 | Progress Note ---
Subjective - Reason for Consult Consult date: 03/02/17 Reason for consult: Psychiatry Follow-up - Chief Complaint Chief complaint: "How are you" This is a 61 year-old female waiting for placement by social services coordinator. Today patient is calm and cooperative during the assessment. She denies SI/HI's and AVH's. Mental Status Exam - Vital signs Last Vital Signs Temp 97.2 F L 03/01/17 10:00 Pulse 100 H 03/01/17 10:00 Resp 18 03/01/17 10:00 BP 108/60 03/01/17 10:00 Pulse Ox 98 03/01/17 10:00 - Exam Narrative exam: MSE: Appearance: calm, cooperative Behavior: regular eye contact Speech: regular rate and tone Mood: "okay" Affect: congruent to mood Thought Process: circumstantial Thought Content: denies SI/HI's and AVH's Motor Activity: ambulatory, mild tremors Cognition: A/O x3 Insight: variable Judgment: variable Assessment and Plan Impression: Dementia. Today patient calm and cooperative during the assessment. Recommendation/Plan: Per Tobacco Sampler, patient is pending placement to an appropriate facility.
[2017-03-03] MEDS: PROTONIX PO SCH (11:08)
--- NOTE | 2017-03-03 13:50 | Progress Note ---
Subjective - Reason for Consult Consult date: 03/03/17 Reason for consult: follow up - Chief Complaint Chief complaint: "How are you" This is a 61 year-old female waiting for placement by social services assistant. Today patient is calm and cooperative during the assessment. She denies SI/HI's and AVH's. Sleep and appetite are fair. She is intrusive at times and has to be redirected. Mental Status Exam - Vital signs Last Vital Signs Temp 98.2 F 03/03/17 13:23 Pulse 90 03/03/17 13:23 Resp 16 03/03/17 13:23 BP 110/67 03/03/17 13:23 Pulse Ox 99 03/03/17 13:23 - Exam Narrative exam: Appearance: calm, cooperative Behavior: regular eye contact Speech: regular rate and tone Mood: "okay" Affect: congruent to mood Thought Process: circumstantial Thought Content: denies SI/HI's and AVH's Motor Activity: ambulatory, mild tremors Cognition: A/O x3 Insight: variable Judgment: variable Assessment and Plan Impression: Dementia. Today patient calm and cooperative during the assessment. Recommendation/Plan: Per Therapeutic Sales Specialist, patient is pending placement to an appropriate facility.
[2017-03-04] MEDS: PROTONIX PO SCH (09:52)
--- NOTE | 2017-03-04 18:20 | Progress Note ---
Subjective - Reason for Consult Consult date: 03/04/17 Reason for consult: follow up - Chief Complaint Chief complaint: "I'm fine." This is a 61 year-old female waiting for placement by clinical social work aide. Today patient is calm and cooperative during the assessment. She denies SI/HI's and AVH's. Appetite is fair. She is intrusive at times and has to be redirected. She wants to be started back on her sleep aid. Mental Status Exam - Vital signs Last Vital Signs Temp 97.8 F 03/04/17 11:18 Pulse 62 03/04/17 11:18 Resp 18 03/04/17 11:18 BP 141/73 03/04/17 11:18 Pulse Ox 100 03/04/17 11:18 - Exam Narrative exam: Appearance: calm, cooperative Behavior: regular eye contact Speech: regular rate and tone Mood: "okay" Affect: congruent to mood Thought Process: circumstantial Thought Content: denies SI/HI's and AVH's Motor Activity: ambulatory, mild tremors Cognition: A/O x3 Insight: variable Judgment: variable Assessment and Plan Impression: Dementia. Today patient calm and cooperative during the assessment. Recommendation/Plan: Remeron 7.5mg hs restarted for sleep. Per Golf Instructor, patient is pending placement to an appropriate facility.
[2017-03-04] MEDS: REMERON PO SCH (22:53)
--- NOTE | 2017-03-05 11:11 | Progress Note ---
Subjective - Reason for Consult Consult date: 03/05/17 Reason for consult: Psychiatry Follow-up - Chief Complaint Chief complaint: "Tashia" This is a 61 year-old female waiting for placement by social media developer. Today patient is calm and cooperative during the assessment. She denies SI/HI's and AVH's. She denies any side effects of her medication. Mental Status Exam - Vital signs Last Vital Signs Temp 98.4 F 03/04/17 20:30 Pulse 69 03/04/17 20:30 Resp 16 03/05/17 04:01 BP 123/47 03/04/17 20:30 Pulse Ox 97 03/05/17 04:01 - Exam Narrative exam: MSE: Appearance: calm, cooperative Behavior: regular eye contact Speech: regular rate and tone Mood: "well" Affect: congruent to mood Thought Process: circumstantial Thought Content: denies SI/HI's and AVH's Motor Activity: ambulatory, mild tremors Cognition: A/O x3 Insight: variable Judgment: variable Assessment and Plan Impression: Dementia. Today patient calm and cooperative during the assessment. Recommendation/Plan: Continue Remeron 7.5 mg Po HS for sleep consolidation. Discussed with patient suicidality/medication induced dagmar with patient reference Remeron. Per Spa Therapist, patient is pending placement to an appropriate facility.
[2017-03-05] MEDS: PROTONIX PO SCH (11:33)
[2017-03-05] MEDS ORDERED: REMERON ONE (23:21)
[2017-03-05] MEDS: REMERON PO SCH (23:44)
--- NOTE | 2017-03-06 10:51 | Progress Note ---
Subjective - Reason for Consult Consult date: 03/06/17 Reason for consult: Psychiatry Follow-up - Chief Complaint Chief complaint: "Hi" This is a 61 year-old female waiting for placement by social group worker. Today patient is calm and cooperative during the assessment. She denies SI/HI's and AVH's. Mental Status Exam - Vital signs Last Vital Signs Temp 98.4 F 03/06/17 08:54 Pulse 88 03/06/17 08:54 Resp 20 03/06/17 08:54 BP 96/76 03/06/17 08:54 Pulse Ox 97 03/06/17 08:54 - Exam Narrative exam: MSE: Appearance: calm, cooperative Behavior: regular eye contact Speech: regular rate and tone Mood: "well" Affect: congruent to mood Thought Process: circumstantial Thought Content: denies SI/HI's and AVH's Motor Activity: ambulatory, mild tremors Cognition: A/O x3 Insight: variable Judgment: variable Assessment and Plan Impression: Dementia. Today patient calm and cooperative during the assessment. Recommendation/Plan: Continue Remeron 7.5 mg PO HS for sleep consolidation. Discussed with patient suicidality/medication induced dagmar with patient reference Remeron. Per Music Worker, patient is pending placement to an appropriate facility.
[2017-03-06] MEDS: PROTONIX PO SCH (11:21)
[2017-03-06] MEDS ORDERED: REMERON ONE (22:27)
[2017-03-06] MEDS: REMERON PO SCH (22:34)
--- NOTE | 2017-03-07 11:40 | Event Note ---
Date: 03/07/17 Patient has been in the ER for over 1000 hours pending placement secondary to social issues. As per case management, patient now has accepted. Patient has been observed in the ER multiple times by myself over the past month and a half , in no distress. Patient will be discharged to her outpatient facility. Vital Signs 01/22/17 01/23/17 01/23/17 19:55 04:01 10:05 Temperature 98.8 F 98 F 98.7 F Pulse Rate 74 75 103 H Respiratory 20 20 Rate Blood Pressure Blood Pressure 150/63 122/70 128/79 [Right] O2 Sat by Pulse 97 100 Oximetry 01/23/17 01/24/17 01/24/17 10:07 03:56 09:34 Temperature 98.2 F Pulse Rate 84 96 H Respiratory 20 18 Rate Blood Pressure Blood Pressure 147/78 144/68 [Right] O2 Sat by Pulse 100 99 Oximetry 01/24/17 01/24/17 01/25/17 09:35 23:00 11:54 Temperature 98.8 F 98.8 F Pulse Rate 69 103 H Respiratory 18 18 18 Rate Blood Pressure Blood Pressure 122/60 124/80 [Right] O2 Sat by Pulse 97 98 Oximetry 01/25/17 01/26/17 01/26/17 22:00 10:00 18:03 Temperature 98.3 F 98.5 F Pulse Rate 68 100 H Respiratory 16 18 18 Rate Blood Pressure Blood Pressure 113/71 106/57 [Right] O2 Sat by Pulse 99 97 97 Oximetry 01/26/17 01/27/17 01/27/17 22:00 07:25 10:30 Temperature 98.4 F 98.4 F Pulse Rate 92 H 68 Respiratory 18 20 20 Rate Blood Pressure Blood Pressure 98/68 119/78 [Right] O2 Sat by Pulse 100 100 100 Oximetry 01/27/17 01/28/17 01/29/17 19:50 10:39 01:30 Temperature 98 F 98.5 F 97.0 F L Pulse Rate 79 75 100 H Respiratory 18 20 16 Rate Blood Pressure Blood Pressure 123/73 134/66 141/65 [Right] O2 Sat by Pulse 100 98 Oximetry 01/29/17 01/30/17 01/30/17 09:10 08:40 11:10 Temperature 97.8 F Pulse Rate 60 67 Respiratory 20 20 20 Rate Blood Pressure Blood Pressure 122/66 140/92 [Right] O2 Sat by Pulse 100 99 Oximetry 01/30/17 01/31/17 01/31/17 20:00 09:28 09:31 Temperature 98.5 F 98.3 F Pulse Rate 60 79 Respiratory 16 20 20 Rate Blood Pressure 119/61 Blood Pressure 112/71 [Right] O2 Sat by Pulse 98 100 100 Oximetry 01/31/17 02/01/17 02/01/17 20:43 11:39 14:03 Temperature 98.2 F 98.3 F Pulse Rate 75 99 H Respiratory 16 16 20 Rate Blood Pressure Blood Pressure 120/66 127/64 [Right] O2 Sat by Pulse 98 98 97 Oximetry 02/01/17 02/02/17 02/02/17 22:00 19:49 20:25 Temperature 98.6 F 98.5 F Pulse Rate 70 79 Respiratory 18 18 16 Rate Blood Pressure Blood Pressure 112/71 105/57 [Right] O2 Sat by Pulse 98 99 Oximetry 02/03/17 02/03/17 02/04/17 10:00 22:00 09:37 Temperature 98.8 F 98.2 F Pulse Rate 98 H 89 Respiratory 18 18 20 Rate Blood Pressure Blood Pressure 117/70 115/76 [Right] O2 Sat by Pulse 99 97 Oximetry 02/04/17 02/05/17 02/05/17 22:00 09:57 10:00 Temperature 98.4 F 98.6 F Pulse Rate 82 71 Respiratory 18 20 20 Rate Blood Pressure Blood Pressure 111/60 104/74 [Right] O2 Sat by Pulse 98 100 100 Oximetry 02/05/17 02/06/17 02/06/17 21:34 07:35 19:35 Temperature 98.3 F 98.3 F 97.8 F Pulse Rate 90 75 80 Respiratory 18 18 18 Rate Blood Pressure Blood Pressure 114/65 108/61 101/61 [Right] O2 Sat by Pulse 96 97 100 Oximetry 02/07/17 02/07/17 02/07/17 08:24 10:24 22:00 Temperature 98.5 F 97.9 F Pulse Rate 82 83 Respiratory 18 18 18 Rate Blood Pressure Blood Pressure 115/72 117/58 [Right] O2 Sat by Pulse 100 98 Oximetry 02/08/17 02/08/17 02/09/17 11:52 14:22 12:45 Temperature 98.1 F Pulse Rate 109 H Respiratory 20 20 Rate Blood Pressure Blood Pressure 127/72 [Right] O2 Sat by Pulse 96 Oximetry 02/09/17 02/10/17 02/10/17 15:10 10:27 12:22 Temperature 98.6 F 98 F Pulse Rate 86 88 Respiratory 16 18 18 Rate Blood Pressure Blood Pressure 128/78 118/75 [Right] O2 Sat by Pulse 98 98 98 Oximetry 02/10/17 02/11/17 02/11/17 19:58 08:41 08:42 Temperature 97.6 F Pulse Rate 78 78 Respiratory 18 18 Rate Blood Pressure Blood Pressure 114/62 128/72 [Right] O2 Sat by Pulse Oximetry 02/11/17 02/12/17 02/12/17 20:03 06:05 09:27 Temperature 98 F 98.5 F Pulse Rate 74 77 88 Respiratory 18 16 Rate Blood Pressure Blood Pressure 121/70 114/72 106/56 [Right] O2 Sat by Pulse 97 98 Oximetry 02/12/17 02/12/17 02/13/17 09:29 23:00 08:38 Temperature 98.3 F 98.3 F Pulse Rate 64 74 Respiratory 16 14 18 Rate Blood Pressure Blood Pressure 102/50 117/64 [Right] O2 Sat by Pulse 98 98 Oximetry 02/13/17 02/14/17 02/14/17 19:05 07:48 07:49 Temperature 98.6 F 97.8 F Pulse Rate 80 75 Respiratory 16 16 16 Rate Blood Pressure Blood Pressure 114/83 103/61 [Right] O2 Sat by Pulse 97 98 98 Oximetry 02/14/17 02/15/17 02/15/17 20:15 13:03 17:05 Temperature 98 F 97.7 F Pulse Rate 72 93 H Respiratory 16 18 18 Rate Blood Pressure Blood Pressure 111/60 133/70 [Right] O2 Sat by Pulse 99 99 99 Oximetry 02/16/17 02/16/17 02/17/17 13:08 22:00 07:10 Temperature 98.0 F Pulse Rate 82 Respiratory 18 18 20 Rate Blood Pressure Blood Pressure 115/75 [Right] O2 Sat by Pulse 100 20 L Oximetry 02/17/17 02/17/17 02/18/17 07:15 22:41 08:10 Temperature 98.2 F 97.9 F 98.8 F Pulse Rate 68 61 62 Respiratory 20 18 20 Rate Blood Pressure Blood Pressure 116/75 123/64 110/57 [Right] O2 Sat by Pulse 97 95 100 Oximetry 02/18/17 02/18/17 02/19/17 11:43 20:45 08:00 Temperature 98.4 F 98.6 F Pulse Rate 70 100 H Respiratory 20 18 18 Rate Blood Pressure Blood Pressure 120/53 136/75 [Right] O2 Sat by Pulse 100 99 99 Oximetry 02/19/17 02/19/17 02/19/17 09:15 21:15 22:05 Temperature 98.2 F Pulse Rate 69 Respiratory 16 16 16 Rate Blood Pressure Blood Pressure 115/74 [Right] O2 Sat by Pulse 99 Oximetry 02/20/17 02/20/17 02/21/17 09:08 22:00 16:02 Temperature 97.8 F 97.8 F Pulse Rate 74 93 H Respiratory 20 18 18 Rate Blood Pressure Blood Pressure 124/70 120/74 [Right] O2 Sat by Pulse 100 99 99 Oximetry 02/21/17 02/22/17 02/22/17 16:03 08:15 09:31 Temperature 98.1 F 98.0 F Pulse Rate 86 78 Respiratory 18 20 20 Rate Blood Pressure Blood Pressure 107/67 105/74 [Right] O2 Sat by Pulse 99 99 Oximetry 02/22/17 02/23/17 02/23/17 20:28 14:35 14:44 Temperature 98.9 F 98.7 F Pulse Rate 98 H Respiratory 16 18 18 Rate Blood Pressure Blood Pressure 123/60 138/58 [Right] O2 Sat by Pulse 97 98 Oximetry 02/23/17 02/24/17 02/24/17 21:00 07:43 22:00 Temperature 98.4 F 98.8 F 98.2 F Pulse Rate 90 75 79 Respiratory 16 16 18 Rate Blood Pressure Blood Pressure 115/70 110/56 138/60 [Right] O2 Sat by Pulse 98 100 99 Oximetry 02/25/17 02/25/17 02/25/17 08:45 19:11 22:00 Temperature 98.8 F 98.6 F 98.8 F Pulse Rate 72 98 H 98 H Respiratory 17 18 18 Rate Blood Pressure Blood Pressure 130/68 90/60 110/70 [Right] O2 Sat by Pulse 99 98 98 Oximetry 02/26/17 02/26/17 02/26/17 07:43 09:29 22:00 Temperature 98.6 F 98.8 F Pulse Rate 70 99 H Respiratory 20 20 18 Rate Blood Pressure Blood Pressure 126/84 110/70 [Right] O2 Sat by Pulse 98 Oximetry 02/27/17 02/27/17 02/27/17 09:52 09:54 17:45 Temperature 98.5 F 98.0 F Pulse Rate 77 68 Respiratory 18 18 18 Rate Blood Pressure Blood Pressure 128/67 134/84 [Right] O2 Sat by Pulse 96 96 98 Oximetry 02/28/17 02/28/17 03/01/17 08:58 20:00 01:15 Temperature 97.7 F 98 F Pulse Rate 90 76 88 Respiratory 14 18 Rate Blood Pressure Blood Pressure 129/66 104/66 132/79 [Right] O2 Sat by Pulse 97 99 Oximetry 03/01/17 03/02/17 03/02/17 10:00 10:00 14:19 Temperature 97.2 F L 98.4 F Pulse Rate 100 H 105 H Respiratory 18 18 20 Rate Blood Pressure Blood Pressure 108/60 107/65 [Right] O2 Sat by Pulse 98 99 Oximetry 03/03/17 03/03/17 03/04/17 13:23 22:00 11:18 Temperature 98.2 F 98.4 F 97.8 F Pulse Rate 90 93 H 62 Respiratory 16 18 18 Rate Blood Pressure Blood Pressure 110/67 116/67 141/73 [Right] O2 Sat by Pulse 99 98 100 Oximetry 03/04/17 03/05/17 03/05/17 20:30 04:01 08:41 Temperature 98.4 F 98.6 F Pulse Rate 69 62 Respiratory 16 16 17 Rate Blood Pressure Blood Pressure 123/47 107/51 [Right] O2 Sat by Pulse 97 97 100 Oximetry 03/05/17 03/05/17 03/06/17 19:42 19:56 00:00 Temperature 98 F Pulse Rate 74 88 Respiratory 17 18 Rate Blood Pressure Blood Pressure 113/72 137/85 [Right] O2 Sat by Pulse 99 Oximetry 03/06/17 03/06/17 03/06/17 05:39 08:54 21:08 Temperature 98.4 F 98.5 F Pulse Rate 87 88 95 H Respiratory 18 20 18 Rate Blood Pressure Blood Pressure 137/88 96/76 106/50 [Right] O2 Sat by Pulse 98 97 95 Oximetry Lab Results 01/22/17 01/22/17 01/22/17 Range/Units 18:39 18:39 18:39 WBC 6.6 (4.5-11.0) K/mm3 RBC 3.97 (3.65-5.03) M/mm3 Hgb 12.5 (10.1-14.3) gm/dl Hct 37.4 (30.3-42.9) % MCV 94 (79-97) fl MCH 32 (28-32) pg MCHC 33 (30-34) % RDW 14.6 (13.2-15.2) % Plt Count 229 (140-440) K/mm3 Lymph % (Auto) 42.4 H (13.4-35.0) % [place] % (Auto) 13.1 H (0.0-7.3) % Eos % (Auto) 0.3 (0.0-4.3) % Baso % (Auto) 0.8 (0.0-1.8) % Lymph # 2.8 (1.2-5.4) K/mm3 [place] # 0.9 H (0.0-0.8) K/mm3 Eos # 0.0 (0.0-0.4) K/mm3 Baso # 0.1 (0.0-0.1) K/mm3 Seg Neutrophils % 43.4 (40.0-70.0) % Seg Neutrophils # 2.9 (1.8-7.7) K/mm3 Sodium 138 (137-145) mmol/L Potassium 4.6 (3.6-5.0) mmol/L Chloride 99.0 (98-107) mmol/L Carbon Dioxide 26 (22-30) mmol/L Anion Gap 18 mmol/L BUN 11 (7-17) mg/dL Creatinine 0.7 (0.7-1.2) mg/dL Estimated GFR > 60 ml/min BUN/Creatinine Ratio 16 % Glucose 96 (65-100) mg/dL Calcium 9.1 (8.4-10.2) mg/dL Total Bilirubin < 0.20 (0.1-1.2) mg/dL AST 29 (5-40) units/L ALT 20 (7-56) units/L Alkaline Phosphatase 141 H (35-129) units/L Total Protein 8.6 H (6.3-8.2) g/dL Albumin 3.9 (3.9-5) g/dL Albumin/Globulin Ratio 0.8 % Urine Color (Yellow) Urine Turbidity (Clear) Urine pH (5.0-7.0) Ur Specific [place] (1.003-1.030) Urine Protein (Negative) mg/dL Urine Glucose (UA) (Negative) mg/dL Urine Ketones (Negative) mg/dL Urine Blood (Negative) Urine Nitrite (Negative) Urine Bilirubin (Negative) Urine Urobilinogen (<2.0) mg/dL Ur Leukocyte Esterase (Negative) Urine WBC (Auto) (0.0-6.0) /HPF Urine RBC (Auto) (0.0-6.0) /HPF U Epithel Cells (Auto) (0-13.0) /HPF Urine Opiates Screen Urine Methadone Screen Ur Barbiturates Screen Ur Phencyclidine Scrn Ur Amphetamines Screen U Benzodiazepines Scrn Urine Cocaine Screen U Marijuana (THC) Screen Drugs of Abuse Note Plasma/Serum Alcohol < 0.01 (0-0.07) gm% 01/22/17 01/22/17 Range/Units 18:49 18:49 WBC (4.5-11.0) K/mm3 RBC (3.65-5.03) M/mm3 Hgb (10.1-14.3) gm/dl Hct (30.3-42.9) % MCV (79-97) fl MCH (28-32) pg MCHC (30-34) % RDW (13.2-15.2) % Plt Count (140-440) K/mm3 Lymph % (Auto) (13.4-35.0) % [place] % (Auto) (0.0-7.3) % Eos % (Auto) (0.0-4.3) % Baso % (Auto) (0.0-1.8) % Lymph # (1.2-5.4) K/mm3 [place] # (0.0-0.8) K/mm3 Eos # (0.0-0.4) K/mm3 Baso # (0.0-0.1) K/mm3 Seg Neutrophils % (40.0-70.0) % Seg Neutrophils # (1.8-7.7) K/mm3 Sodium (137-145) mmol/L Potassium (3.6-5.0) mmol/L Chloride (98-107) mmol/L Carbon Dioxide (22-30) mmol/L Anion Gap mmol/L BUN (7-17) mg/dL Creatinine (0.7-1.2) mg/dL Estimated GFR ml/min BUN/Creatinine Ratio % Glucose (65-100) mg/dL Calcium (8.4-10.2) mg/dL Total Bilirubin (0.1-1.2) mg/dL AST (5-40) units/L ALT (7-56) units/L Alkaline Phosphatase (35-129) units/L Total Protein (6.3-8.2) g/dL Albumin (3.9-5) g/dL Albumin/Globulin Ratio % Urine Color Straw (Yellow) Urine Turbidity Clear (Clear) Urine pH 6.0 (5.0-7.0) Ur Specific [place] 1.006 (1.003-1.030) Urine Protein <15 mg/dl (Negative) mg/dL Urine Glucose (UA) Neg (Negative) mg/dL Urine Ketones Neg (Negative) mg/dL Urine Blood Neg (Negative) Urine Nitrite Neg (Negative) Urine Bilirubin Neg (Negative) Urine Urobilinogen < 2.0 (<2.0) mg/dL Ur Leukocyte Esterase Tr (Negative) Urine WBC (Auto) 2.0 (0.0-6.0) /HPF Urine RBC (Auto) 1.0 (0.0-6.0) /HPF U Epithel Cells (Auto) < 1.0 (0-13.0) /HPF Urine Opiates Screen Presumptive negative Urine Methadone Screen Presumptive negative Ur Barbiturates Screen Presumptive negative Ur Phencyclidine Scrn Presumptive negative Ur Amphetamines Screen Presumptive negative U Benzodiazepines Scrn Presumptive negative Urine Cocaine Screen Presumptive negative U Marijuana (THC) Screen Presumptive negative Drugs of Abuse Note Disclamer Plasma/Serum Alcohol (0-0.07) gm%
[2017-03-07 12:23] VITALS: BP 120/76
== END 2017-03-07 14:51 | disposition other institution (70) ==
LOC: ED 17:19 → EEVIPCON 17:19 → ED 03-07 14:51
DX: R10.9 Unspecified abdominal pain (principal); I10 Essential (primary) hypertension
CPT/HCPCS: 36415; 80053; 80307; 81001; 85025; 99285; G0480; 80320